=== PATIENT | female | born 1995 | race Two or more races ===

== ENCOUNTER 2019-03-24 06:39 | Inpatient (IN) | payer OTHER ==
[2019-03-25] MEDS ORDERED: VITAMIN D35000 UNI1 PO (08:30)
[2019-03-25] MEDS ORDERED: ATABEX OB (08:34)
[2019-03-26] MEDS ORDERED: PRENATAL + DHA1 EAC1 PO (09:48)
== END 2019-03-26 14:33 | disposition home or self-care (01) | DRG 807 ==
LOC: OBS/DEL 06:39 → LDR 08:44 → OB/GYN 08:44 → LDR 13:39 → OB/GYN 17:21
PROVIDERS: ADMIT Obstetrics & Gynecology
PROC: 10E0XZZ Delivery of Products of Conception, External Approach (ICD-10-PCS; principal; 2019-03-24)
PROC: 4A1HXCZ Monitoring of Products of Conception, Cardiac Rate, External Approach (ICD-10-PCS; 2019-03-24)
DX: O60.14X0 Preterm labor third trimester with preterm delivery third trimester, not applicable or unspecified (principal); Z37.0 Single live birth; O42.913 Preterm premature rupture of membranes, unspecified as to length of time between rupture and onset of labor, third trimester; Z3A.29 29 weeks gestation of pregnancy; Z22.330 Carrier of Group B streptococcus